=== PATIENT | male | born 1965 | race Caucasian/White ===

== ENCOUNTER 2019-03-28 18:09 | Outpatient (CLI) | payer OTHER, SELFPAY ==
--- NOTE | ~2019-03-28 | XR_ITS ---
EXAMINATION: XR chest 2V DATE: 03/28/2019 18:26 INDICATION: Shortness of breath and wheezing TECHNIQUE: PA and lateral views of the chest are obtained. COMPARISON: None available FINDINGS: The lungs are free of acute opacities. There is no pleural effusion or pneumothorax. The ca rdiomediastinal silhouette is normal. There is moderate thoracic spondylosis. IMPRESSION: 1. No acute cardiopulmonary abnormality. Reviewed, dictated and finalized at location A. [employer]
== END 2019-03-28 18:10 | disposition home or self-care (01) ==
PROVIDERS: PCP Internal Medicine; Visit Provider Internal Medicine
DX: R06.00 Dyspnea, unspecified (principal)
CPT/HCPCS: 71046

== ENCOUNTER 2019-04-27 09:03 | Outpatient (RCR) | payer OTHER, SELFPAY ==
[2019-04-27 09:30] VITALS: BMI 59.1
== END 2019-07-16 08:06 | disposition home or self-care (01) ==
LOC: ANHWOC 09:03
PROVIDERS: PCP Internal Medicine; Visit Provider Internal Medicine
DX: L03.115 Cellulitis of right lower limb (principal); L03.116 Cellulitis of left lower limb
CPT/HCPCS: 99213; G0463

== ENCOUNTER 2020-09-08 07:12 | Emergency (ER) | payer OTHER, SELFPAY ==
[2020-09-08] VITALS (34 sets, daily range): BP systolic 103–161; BP diastolic 64–99; PULSE 66–109; RESP 12–33; TEMP 36.6; O2SAT 93–99
--- NOTE | ~2020-09-08 | XR_ITS ---
EXAMINATION: XR chest 2V 09/08/2020 08:02 INDICATION: Chest tightness PROCEDURE: 2 view chest COMPARISON: No prior studies for comparison. FINDINGS: The lungs are clear. The cardiomediastinal silhouette is within normal limits. There are no pleural effusions. There is no pneumothorax suspected. There is diffuse idiopathic skeletal hyp erostosis (DISH) of the thoracic spine. IMPRESSION: 1: NO ACUTE CARDIOPULMONARY DISEASE. Reviewed, dictated and finalized at location A.
--- NOTE | 2020-09-08 07:13 | ECG_ITS ---
Measurements Intervals [place] Rate: 104 P: 72 AL: 176 QRS: -30 QRSD: 81 T: 75 QT: 313 QTc: 413 Interpretive Statements SINUS TACHYCARDIA ANTEROSEPTAL INFARCT, AGE INDETERMINATE BASELINE ARTIFACT- I, III, AVR, AVL, V1 ABNORMAL ECG Electronically Signed On 09-08-2020 10:47:46 CDT by Abe Banks D.O.
--- NOTE | 2020-09-08 07:27 | ED.CHESTPAIN ---
HPI - Chest Pain General Chief Complaint: Chest Pain Stated Complaint: chest pain Time Seen by Provider: 09/08/20 07:12 Source: patient Mode of arrival: ambulatory Limitations: no limitations History of Present Illness HPI narrative: 54-year-old man with a history of hypertension and dyslipidemia 54-year-old man with a history of obesity, dyslipidemia and hypertension comes in today complaining of chest tightness that started last night about 11:00 p.m.. Patient states that she feels short of breath, and mildly nauseated. Patient states he has been having pain in the middle of his back and he feels like the pain radiates from there. States the pain gets better if he moves his back to a more or less upright position. he has been seeing his chiropractor for this. He denies any cough or cold symptoms, fever, chills, sore throat, vomiting, diarrhea, dysuria, change in appetite, or recent sick exposures. He has had both a COVID and an influenza vaccine. MD complaint: chest discomfort Onset (ago): hour(s) (8) Timing of current episode: constant Prior episodes: No Onset: during rest Pain location: right chest and posterior Pain radiation: other ( right arm) Severity: moderate Quality: tightness Relieving factors: sitting upright Exacerbating factors: movement ( or position) Associated symptoms: nausea and dyspnea Treatment prior to arrival: none Risk Factors Coronary artery disease risk factors: hyperlipidemia and hypertension Pulmonary embolism risk factors: morbid obesity Related Data Home Medications Medication Instructions Recorded Confirmed escitalopram oxalate 20 mg PO DAILY 04/27/19 09/08/20 losartan-hydrochlorothiazide 1 tablet PO DAILY 04/27/19 09/08/20 pravastatin 10 mg PO DAILY 04/27/19 09/08/20 Allergies Allergy/AdvReac Type Severity Reaction Status Date / Time No Known Allergies Allergy Verified 04/27/19 14:08 Review of Systems Review of Systems: All systems reviewed & are unremarkable except as noted in HPI and below Constitutional: Constitutional: Denies chills, Denies fever(s) and Denies weakness Eyes: Eyes: Denies change in vision and Denies photophobia ENT: Denies nasal congestion and Denies sore throat Cardiovascular: Cardiovascular: Reports as per HPI, Denies rapid heart rate and Denies slow heart rate Respiratory: Respiratory: Reports as per HPI, Denies cough, Reports dyspnea and Denies wheezing Gastrointestinal: Gastrointestinal: Denies abdominal pain, Denies diarrhea, Reports nausea and Denies vomiting Genitourinary: Genitourinary: Denies dysuria and Denies urinary frequency Musculoskeletal: Musculoskeletal: Reports back pain, Denies arthralgias and Denies joint swelling Integumentary/Breasts: Skin/Breast: Denies pruritus, Denies erythema and Denies rash Neurologic: Denies vertigo, Denies dizziness and Denies syncope Endocrine: Endocrine: Denies polydipsia and Denies polyuria Hematologic/Lymphatic: Hematologic/Lymphatic: Denies easy bleeding and Reports easy bruising Allergic/Immunologic: Allergic/Immunologic: Denies lip swelling and Denies throat swelling PMFSH Past Medical History Medical History (Updated 09/08/20 @ 12:06 by Carlos Diaz MD) Dyslipidemia Hypertension Lymphedema of both lower extremities Morbid obesity Surgical History Surgical History History of carpal tunnel surgery Family History Family History (Updated 10/25/16 @ 13:55 by DOCTOR UNKNOWN) Mother Acute myocardial infarction Father Cerebrovascular accident Malignant neoplasm of prostate Social History Social History Smoking status: Former smoker Tobacco type: e-cigarettes/vaping Alcohol intake: never Substance use: never Living arrangements: with family Gender identity (if verbalized by the patient): Male Exam Const: General: alert Nutritional
[2020-09-08] MEDS: ASPIRIN 81 MG CHEWABLE TABLET 324 MG PO (07:31)
[2020-09-08] MEDS: MAG HYDROX/ALUMINUM HYD/SIMETH 30 ML, PHENobarb/HYOSCY/ATROPINE/SCOP 32.4 MG, LIDOCAINE... PO (07:31)
[2020-09-08 07:45] LABS: Basophils Absolute Auto 0.04 K/mm3 (0.00-0.10); Basophils Percent Auto 0.6 % (0.0-1.0); Eosinophils Absolute Auto 0.13 K/mm3 (0.02-0.50); Eosinophils Percent Auto 1.9 % (1.0-6.0); Hematocrit 48.2 % (40.0-54.0); Hemoglobin 14.9 g/dL (14.0-18.0); Immature Granulocyte Absolute 0.03 K/mm3 (0.00-0.00); Immature Granulocyte Percent A 0.4 % (0.0-0.0); Lymphocytes Absolute Auto 1.57 K/mm3 (1.10-4.50); Mean Corpuscular HGB Conc 30.9 g/dL (32.0-36.0); Mean Corpuscular Hemoglobin 28.7 pg (27.0-31.0); Mean Corpuscular Volume 92.7 fL (78.0-102.0); Mean Platelet Volume 12.1 fl (8.7-11.0); Monocytes Absolute Auto 0.86 K/mm3 (0.10-0.90); Monocytes Percent Auto 12.6 % (2.0-11.0); Neutrophils Absolute Auto 4.2 K/mm3 (1.7-7.2); Neutrophils Percent Auto 61.5 % (50.0-70.0); Platelet Count Result 203 K/mm3 (150-420); Red Cell Distribution Width 14.9 % (11.6-14.4); White Blood Count 6.8 K/mm3 (4.8-10.8)
[2020-09-08 08:06] LABS: Alanine Aminotransferase 19 U/L (16-63); Albumin Level 3.2 g/dL (3.4-5.0); Alkaline Phosphatase 83 U/L (46-116); Anion Gap 6 mmol/L (8-16); Aspartate Amino Transferase 45 U/L (15-37); Bilirubin,Total 0.4 mg/dL (0.00-1.00); Blood Urea Nitrogen 12 mg/dL (7-18); Calcium 8.8 mg/dL (8.5-10.1); Carbon Dioxide 31 mmol/L (21-32); Chloride 102 mmol/L (98-108); Estimated CRCL calculation 114 ml/min; Estimated Glomerular Filt Rate > 60; Glucose 111 mg/dL (70-99); Lipase 74 U/L (73-393); NT Pro B Type Natriuretic Pept 100 pg/mL (0-125); Osmolality Calculated 288 mOsm/kg (285-295); Potassium 3.9 mmol/L (3.5-5.1); Sodium 139 mmol/L (136-145); Total Protein 7.2 g/dL (6.4-8.2)
--- NOTE | 2020-09-08 08:11 | PC.NURSE ---
pt placed on 2liter oxygen via nc
[2020-09-08 08:13] LABS: D Dimer 0.42 mg/L (0.19-0.50)
--- NOTE | 2020-09-08 08:16 | PC.NURSE ---
call placed to [facility] for transfer.
[2020-09-08] MEDS: NITROGLYCERIN SL 0.4 MG TABLET SUBLINGUAL (08:20)
--- NOTE | 2020-09-08 08:25 | PC.NURSE ---
2ND SL NITROGLYCERIN ADMINISTERED. PT RATES PAIN 5/10 PRIOR TO ADMINISTRATION.
[2020-09-08] MEDS: ENOXAPARIN 100 MG/ML SYRINGE SUB-Q (08:30)
--- NOTE | 2020-09-08 08:30 | PC.NURSE ---
PT RATES PAIN 5/10. 3RD SL NITRO 0.4 MG ADMINISTERED.
[2020-09-08] MEDS: METOPROLOL TARTRATE 25 MG TABLET PO (08:40)
[2020-09-08 08:43] LABS: Partial Thromboplastin Time 27.1 SEC (23.90-30.70); Prothrombin Time 10.6 Seconds (9.50-12.10)
[2020-09-08] MEDS: NITROGLYCERIN OINTMENT 1 INCH DOSE TRANSDERM (08:50)
[2020-09-08] MEDS: ACETAMINOPHEN 500 MG TABLET 1000 MG PO (08:50)
--- NOTE | 2020-09-08 09:49 | PC.NURSE ---
DUE TO NO BEDS AT [facility]. [facility] CONTACTED PER PTS REQUEST.
--- NOTE | 2020-09-08 10:46 | PC.NURSE ---
PT SITTING UP ON STRETCHER, DENIES PAIN, FAMILY AT BEDSIDE. DR STOREY ATTEMPTING TO CONTACT [facility].
--- NOTE | 2020-09-08 10:48 | PC.NURSE ---
NO BEDS AVAILABLE AT [facility], DR STOREY CONTACTING [facility] [place].
--- NOTE | 2020-09-08 10:51 | PC.NURSE ---
DR STOREY SPEAKING WITH DR CABALLERO
--- NOTE | 2020-09-08 10:59 | PC.NURSE ---
[facility] CONTACTED, TRANSFER CENTER STATES THEY HAVE NO BEDS AT [place] OR [facility], BUT COULD POSSIBLY HAVE SOMETHING AT [facility]. DR STOREY SPEAKING WITH TRANSFER LINE. PT CONTINUES TO REST COMFORTABLY ON STRETCHER, NO PAIN AT THIS TIME, FAMILY AT BEDSIDE
--- NOTE | 2020-09-08 11:13 | PC.NURSE ---
DR STOREY SPEAKING WITH DR CROOK, CARDIOLOGY WITH [facility]. [facility] HAS NO BEDS AND PT WILL BE PUT ON WEIGHT LIST ONCE ACCEPTED.
--- NOTE | 2020-09-08 11:14 | PC.NURSE ---
[facility] CONTACTED AND DOES NOT HAVE A BED AVAILABLE FOR PT.
--- NOTE | 2020-09-08 11:19 | PC.NURSE ---
[facility] TRANSFER LINE CONTACTED TO CHECK BED STATUS FOR TRANSFER.
--- NOTE | 2020-09-08 12:02 | PC.NURSE ---
pt to be transfered to [facility] in [place] to the er.
[2020-09-08 12:17] LABS: Glucose Point of Care 91 mg/dl (65-105)
[2020-09-08] MEDS: DEXTROSE 5%/0.9% SOD CHL 1,000 ML 100 ML IV CONT (12:31)
--- NOTE | 2020-09-08 12:31 | PC.NURSE ---
CHART FAXED TO RECEIVING FACILITY
[2020-09-08 12:33] LABS: Add Urine Microscopic? YES; Appearance Urine Clear (Clear); Bilirubin Urine Negative (Negative); Blood Urine Negative (Negative); Color Urine Yellow (Yellow); Glucose Urine UA Negative (Negative); Ketones Urine Negative (Negative); Leukocyte Esterase Ur Negative LEU/UL (Negative); Nitrate Urine Negative (Negative); Protein Urine Trace (Negative); Specific Grav Ur >= 1.030 (1.010-1.020); Urobilinogen Urine 0.2 mg/dL (0.2-1.0); pH Urine 5.5 (5.0-8.0)
--- NOTE | 2020-09-08 12:46 | PC.NURSE ---
PT TRANSFERRED TO [facility] IN [facility] VIA [facility]. [facility] CONTACTED PRIOR TO [facility] AND THEY DO NOT HAVE [facility] AVAILABLE FOR TRANSFER. PT TRANSFERRED WITH IV FLUIDS INFUSING
[2020-09-08 12:48] LABS: Bacteria Urine 2+ /hpf; Mucus Urine Few /lpf; RBC Urine 0-2 /hpf (0-2); Squamous Epithelial Cell Urine Few /hpf (Few); WBC Urine 0-3 /hpf (0-3)
== END 2020-09-08 12:46 | disposition short-term general hospital (02) ==
PROVIDERS: Emergency Provider Emergency Medicine; PCP Internal Medicine
DX: I21.4 Non-ST elevation (NSTEMI) myocardial infarction (principal); R06.02 Shortness of breath
CPT/HCPCS: 36415; 71046; 80053; 81001; 82948; 83690; 83880; 84484; 85025; 85380; 85610; 85730; 93005; 96372; 99285; A9270; J1650; J7042

== ENCOUNTER 2021-12-03 09:54 | Outpatient (CLI) | payer OTHER, SELFPAY ==
--- NOTE | ~2021-12-03 | US_ITS ---
EXAMINATION: US venous doppler [facility] DATE: 12/03/2021 10:56 INDICATION: Left lower extremity edema TECHNIQUE: Arora scale images without and with compression and Doppler images of the left lower extrem ity veins were obtained. COMPARISON: None FINDINGS: The left common femoral vein, profunda femoral vein, femoral vein, popliteal vein, peroneal trunk, posterior tibial veins, and greater saphenous vein are patent. There appears to be a mildly e nlarged left inguinal lymph node. IMPRESSION: 1. Patent left lower extremity veins. No evidence of deep venous thrombosis. 2. Possible left inguinal lymphadenopathy. Clinically correlate. Reviewed, dictated and finalized at location B.
== END 2021-12-03 09:55 | disposition home or self-care (01) ==
LOC: CHSIMG 09:57
PROVIDERS: PCP Internal Medicine; Visit Provider Internal Medicine
DX: R60.0 Localized edema (principal)
CPT/HCPCS: 93971

== ENCOUNTER 2021-12-28 08:37 | Outpatient (CLI) | payer OTHER, SELFPAY ==
--- NOTE | ~2021-12-28 | CT_ITS ---
EXAMINATION: CT diagnostic chest wo con DATE: 12/28/2021 09:14 INDICATION: Shortness of breath TECHNIQUE: Computed tomography (CT) of the chest was performed without intravenous contrast. The dose -length product (DLP) was 1100.03 mGy-cm. Automated exposure control and iterative reconstruction mariangel hnique were employed. COMPARISON: None FINDINGS: There are multiple small nodules scattered throughout the lungs which measure up to 4 mm. T he lungs are free of focal airspace opacities. No pleural effusion or pneumothorax. There is mild emp hysema. No pathologically enlarged thoracic lymph nodes are identified. The heart size is normal. The re appear to be changes of coronary artery stenting. Mild gynecomastia is noted. Calcified pulmonary nodules and calcified left hilar lymph nodes are consistent with old granulomatous disease. There is moderate thoracic spondylosis. IMPRESSION: 1. Mild emphysema. 2. Scattered pulmonary nodules throughout the lungs measuring up to 4 mm, likely old granulomatous di sease. Reviewed, dictated and finalized at location F. [employer] IMPRESSION: 1. Mild emphysema. 2. Scattered pulmonary nodules throughout the lungs measuring up to 4 mm, likel y old granulomatous disease.
== END 2021-12-28 08:38 | disposition home or self-care (01) ==
LOC: CHSIMG 08:38
PROVIDERS: PCP Internal Medicine; Visit Provider Internal Medicine
DX: R06.00 Dyspnea, unspecified (principal)
CPT/HCPCS: 71250

== ENCOUNTER 2022-05-17 15:17 | Outpatient (CLI) | payer OTHER, SELFPAY ==
--- NOTE | ~2022-05-17 | CT_ITS ---
EXAMINATION:CT lung screening DATE: 05/17/2022 15:35 INDICATION: Personal history of nicotine dependence. Smoker who quit 10 years ago with 28 pack year h istory. TECHNIQUE: Computed tomography (CT) of the chest was performed without intravenous contrast. Automate d exposure control and iterative reconstruction technique were employed. The dose-length product (DLP ) was 738.95 mGy-cm. COMPARISON: Chest CT 12/28/2021 FINDINGS: There is mild emphysema. There is mild atelectasis bilaterally. Calcified bilateral lung no dules and calcified left hilar lymph nodes are consistent with old granulomatous disease. There is a 4 mm nodule at left major fissure. There are 4 mm and 3 mm nodules in the right upper lobe. There is a 3 mm nodule in lingula. No pleural effusion. The heart size is normal. There is likely a stent in l eft anterior descending coronary artery. No pericardial effusion. There is mild chronic anterior wedg ing of multiple thoracic vertebral bodies. There is moderate thoracic spondylosis. Thoracic dextrosco liosis is noted. IMPRESSION: 1. Lung-RADS category 2: Benign appearance or behavior. Continue annual screening with noncontrast lo w-dose chest CT in 12 months. Reviewed, dictated and finalized at location A. IMPRESSION: 1. Lung-RADS category 2: Benign appearance or behavior. Continue annual screeni ng with noncontrast low-dose chest CT in 12 months.
== END 2022-05-17 15:18 | disposition home or self-care (01) ==
LOC: CHSIMG 15:18
PROVIDERS: PCP Internal Medicine; Visit Provider Internal Medicine
DX: Z12.2 Encounter for screening for malignant neoplasm of respiratory organs (principal); Z87.891 Personal history of nicotine dependence
CPT/HCPCS: 71271

== ENCOUNTER 2022-09-21 17:01 | Outpatient (CLI) | payer OTHER, SELFPAY ==
[2022-09-21 17:21] LABS: Basophils Absolute Auto 0.05 K/mm3 (0.00-0.10); Basophils Percent Auto 0.5 % (0.0-1.0); Eosinophils Absolute Auto 0.13 K/mm3 (0.02-0.50); Eosinophils Percent Auto 1.4 % (1.0-6.0); Hematocrit 45.4 % (40.0-54.0); Hemoglobin 14.1 g/dL (14.0-18.0); Immature Granulocyte Absolute 0.06 K/mm3 (0.00-0.00); Immature Granulocyte Percent A 0.6 % (0.0-0.0); Lymphocytes Absolute Auto 1.57 K/mm3 (1.10-4.50); Lymphocytes Percent Auto 16.8 % (18.0-42.0); Mean Corpuscular HGB Conc 31.1 g/dL (32.0-36.0); Mean Corpuscular Volume 93.4 fL (78.0-102.0); Mean Platelet Volume 11.5 fl (8.7-11.0); Monocytes Absolute Auto 0.91 K/mm3 (0.10-0.90); Monocytes Percent Auto 9.7 % (2.0-11.0); Neutrophils Absolute Auto 6.7 K/mm3 (1.7-7.2); Platelet Count Result 209 K/mm3 (150-420); Red Blood Count 4.86 M/mm3 (4.70-6.10); Red Cell Distribution Width 15.4 % (11.6-14.4); White Blood Count 9.4 K/mm3 (4.8-10.8)
[2022-09-21 17:22] LABS: Appearance Urine Clear (Clear); Bilirubin Urine Negative (Negative); Blood Urine Trace-Intact (Negative); Color Urine Yellow (Yellow); Glucose Urine UA Negative (Negative); Ketones Urine Negative (Negative); Leukocyte Esterase Ur Negative (Negative); Nitrate Urine Negative (Negative); Protein Urine Negative (Negative); Specific Grav Ur 1.025 (1.010-1.020)
[2022-09-21 17:54] LABS: Add Urine Microscopic? YES; Amorphous Sediment Urine Moderate; Bacteria Urine 1+ /hpf; RBC Urine 0-2 /hpf (0-2); Squamous Epithelial Cell Urine Few /hpf (Few)
[2022-09-21 17:55] LABS: Mucus Urine Moderate /lpf
[2022-09-21 18:14] LABS: Alanine Aminotransferase 25 U/L (16-63); Albumin Level 3.4 g/dL (3.4-5.0); Alkaline Phosphatase 100 U/L (46-116); Anion Gap 7 mmol/L (8-16); Aspartate Amino Transferase 47 U/L (15-37); Bilirubin,Total 0.5 mg/dL (0.00-1.00); Blood Urea Nitrogen 14 mg/dL (7-18); Carbon Dioxide 30 mmol/L (21-32); Chloride 105 mmol/L (98-108); Cholesterol 139 mg/dL (0-200); Estimated Glomerular Filt Rate > 60; Free T3 2.57 pg/mL (2.18-3.98); Free T4 Free Thyroxine 1.04 ng/dL (0.76-1.46); Glucose 95 mg/dL (70-99); HDL Direct 40 mg/dL (40-60); LDL Cholesterol Calculated 87 mg/dL (<130); NT Pro B Type Natriuretic Pept 49 pg/mL (0-125); Osmolality Calculated 294 mOsm/kg (285-295); Potassium 4.4 mmol/L (3.5-5.1); Prostate Specific Antigen 0.6 ng/mL (< OR = 4.0); Sodium 142 mmol/L (136-145); Thyroid Stimulating Hormone 3.85 uIU/mL (0.36-3.74); Total Protein 6.7 g/dL (6.4-8.2); Triglycerides 62 mg/dL (0-150)
[2022-09-22 10:38] LABS: Hemoglobin A1C 5.9 % (<5.7)
== END 2022-09-21 17:02 | disposition home or self-care (01) ==
LOC: CHSLAB 17:05
PROVIDERS: PCP Internal Medicine; Visit Provider Internal Medicine
DX: L03.115 Cellulitis of right lower limb (principal); R53.82 Chronic fatigue, unspecified; I83.893 Varicose veins of bilateral lower extremities with other complications; I89.0 Lymphedema, not elsewhere classified; I10 Essential (primary) hypertension; Z12.5 Encounter for screening for malignant neoplasm of prostate; I89.9 Noninfective disorder of lymphatic vessels and lymph nodes, unspecified; I28.9 Disease of pulmonary vessels, unspecified
CPT/HCPCS: 36415; 80053; 80061; 81001; 83036; 83880; 84153; 84439; 84443; 84481; 85025; 85380; G0103

== ENCOUNTER 2023-03-26 07:58 | Outpatient (CLI) | payer OTHER, SELFPAY ==
[2023-03-26 08:22] LABS: Appearance Urine Clear (Clear); Bilirubin Urine 1+ (Negative); Blood Urine Negative (Negative); Color Urine Yellow (Yellow); Glucose Urine UA Negative (Negative); Ketones Urine Negative (Negative); Leukocyte Esterase Ur Negative LEU/UL (Negative); Nitrate Urine Negative (Negative); Protein Urine Trace (Negative); Specific Grav Ur >= 1.030 (1.010-1.020)
[2023-03-26 08:31] LABS: Add Urine Microscopic? YES; Bacteria Urine 1+ /hpf; Mucus Urine Few /lpf; RBC Urine None seen /hpf (0-2); Squamous Epithelial Cell Urine Few /hpf (Few); WBC Urine None seen /hpf (0-3)
[2023-03-26 08:43] LABS: Basophils Absolute Auto 0.03 K/mm3 (0.00-0.10); Basophils Percent Auto 0.4 % (0.0-1.0); Eosinophils Absolute Auto 0.08 K/mm3 (0.02-0.50); Hematocrit 51.3 % (40.0-54.0); Hemoglobin 15.3 g/dL (14.0-18.0); Immature Granulocyte Absolute 0.04 K/mm3 (0.00-0.00); Immature Granulocyte Percent A 0.5 % (0.0-0.0); Lymphocytes Absolute Auto 0.93 K/mm3 (1.10-4.50); Lymphocytes Percent Auto 11.9 % (18.0-42.0); Mean Corpuscular HGB Conc 29.8 g/dL (32.0-36.0); Mean Corpuscular Hemoglobin 26.6 pg (27.0-31.0); Mean Corpuscular Volume 89.1 fL (78.0-102.0); Mean Platelet Volume 11.4 fl (8.7-11.0); Monocytes Absolute Auto 0.96 K/mm3 (0.10-0.90); Monocytes Percent Auto 12.3 % (2.0-11.0); Neutrophils Absolute Auto 5.8 K/mm3 (1.7-7.2); Neutrophils Percent Auto 73.9 % (50.0-70.0); Platelet Count Result 202 K/mm3 (150-420); Red Blood Count 5.76 M/mm3 (4.70-6.10); Red Cell Distribution Width 17.2 % (11.6-14.4); White Blood Count 7.8 K/mm3 (4.8-10.8)
[2023-03-26 08:48] LABS: Hemoglobin A1C 5.9 % (<5.7)
[2023-03-26 09:03] LABS: Alanine Aminotransferase 18 U/L (16-63); Albumin Level 3.3 g/dL (3.4-5.0); Alkaline Phosphatase 112 U/L (46-116); Anion Gap 7 mmol/L (8-16); Aspartate Amino Transferase 38 U/L (15-37); Bilirubin,Total 0.8 mg/dL (0.00-1.00); Blood Urea Nitrogen 12 mg/dL (7-18); Calcium 8.6 mg/dL (8.5-10.1); Carbon Dioxide 32 mmol/L (21-32); Chloride 102 mmol/L (98-108); Cholesterol 129 mg/dL (0-200); Creatine Kinase 125 U/L (39-308); Estimated Glomerular Filt Rate 59; Free T3 1.97 pg/mL (2.18-3.98); Free T4 Free Thyroxine 0.89 ng/dL (0.76-1.46); Glucose 106 mg/dL (70-99); HDL Direct 50 mg/dL (40-60); LDL Cholesterol Calculated 73 mg/dL (<130); Osmolality Calculated 291 mOsm/kg (285-295); Potassium 4.1 mmol/L (3.5-5.1); Sodium 141 mmol/L (136-145); Thyroid Stimulating Hormone 4.72 uIU/mL (0.36-3.74); Total Protein 7.4 g/dL (6.4-8.2); Triglycerides 29 mg/dL (0-150)
== END 2023-03-26 07:59 | disposition home or self-care (01) ==
PROVIDERS: PCP Internal Medicine; Visit Provider Internal Medicine
DX: N39.0 Urinary tract infection, site not specified (principal); E78.00 Pure hypercholesterolemia, unspecified; I10 Essential (primary) hypertension; R73.01 Impaired fasting glucose; R53.82 Chronic fatigue, unspecified
CPT/HCPCS: 36415; 80053; 80061; 81001; 82550; 83036; 84439; 84443; 84481; 85025

== ENCOUNTER 2023-05-02 07:48 | Outpatient (CLI) | payer OTHER, SELFPAY ==
--- NOTE | ~2023-05-02 | US_ITS ---
EXAMINATION: US thyroid DATE: 05/02/2023 08:28 INDICATION: Hypothyroidism TECHNIQUE: Multiple ultrasound images of the thyroid were obtained. COMPARISON: CT chest 12/28/2021. FINDINGS: Exam somewhat limited by body habitus. The right thyroid lobe measures 2.7 x 1.4 x 1.3 cm. The left thyroid lobe measures 3.3 x 1.2 x 1.3 cm. The isthmus measures 6 mm. There is normal echotexture and echogenicity throughout the thyroid gland. No discrete nodules identified. Normal vascular flow is pr esent. IMPRESSION: Unremarkable thyroid ultrasound findings. Reviewed, dictated and finalized at location K.
--- NOTE | 2023-05-02 08:09 | ECHO_ITS ---
Patient Info Name: Rony Franco Age: 57 years : 1965 Gender: Male Ht: 69 in Wt: 420 lbs BSA: 3.17 m2 HR: 80 bpm BP: 145 / 90 mmHg Heart Rhythm: Sinus Rhythm Technical Quality: Poor Exam Date: 05/02/2023 9:32 AM Exam Location: Echo Lab Patient Status: Outpatient Admit Date: 05/02/2023 Staff Ordering Physician: Michelle Yap MD Video News Editor: Vijay Dubon RDCS Attending Provider: Michelle Yap MD Referring Physician: Fracisco WALLACE; Exam Type: CA echo dop color flow w con Study Info Indications - copd/hypoxia/chf Complete two-dimensional, color flow and Doppler transthoracic echocardiogram is performed with contrast to opacify the left ventricle and to improve the deliniation of the left ventricle endocardial borders. Contrast/Agitated Saline Contrast/Ag. Saline: Definity Amount: 3.00 ml Reason for Poor Study: poor echocardiographic windows Summary 1. Technically suboptimal study due to poor sonographic images. 2. Definity contrast administered improved wall motion interpretation. 3. Left ventricular chamber dimension is normal. 4. Left ventricular systolic function is normal, estimated at 60-65%. 5. The left ventricular diastolic function is grade I diastolic dysfunction. 6. E/e' 13 is mildly elevated. 7. There is mild mitral valve regurgitation. 8. There is trace tricuspid valve regurgitation. 9. No pulmonary hypertension, estimated pulmonary arterial systolic pressure is 14 mmHg. Left Ventricle E/e' 13 is mildly elevated. Definity contrast administered improved wall motion interpretation. Technically suboptimal study due to poor sonographic images. Left ventricular chamber dimension is normal. Left ventricular systolic function is normal, estimated at 60-65%. The left ventricular diastolic function is grade I diastolic dysfunction. Right Ventricle Right ventricular chamber dimension is normal. Right ventricular systolic function is normal. Left Atria Left atrial chamber dimension is normal. Right Atria Right atrial chamber dimension is normal. Aortic Valve The aortic valve is trileaflet. There is no aortic valve stenosis. There is no aortic valve regurgitation. Pulmonic Valve There is no pulmonic regurgitation. Mitral Valve There is no mitral valve stenosis. There is mild mitral valve regurgitation. Tricuspid Valve There is trace tricuspid valve regurgitation. No pulmonary hypertension, estimated pulmonary arterial systolic pressure is 14 mmHg. Pericardium/Pleural There is no pericardial effusion. Inferior Vena Cava Normal inferior vena cava with >50% collapse upon inspiration consistent with normal right atrial pressure, 5 mmHg. Aorta The aortic root size at the sinus of Valsalva is normal. Left Ventricular Outflow Tract Name Value Normal LVOT 2D LVOT Diameter 2.04 cm LVOT Doppler LVOT Peak Velocity 126.78 cm/s LVOT Peak Gradient 6 mmHg LVOT Mean Gradient 3 mmHg LVOT VTI 37.59 cm LVOT VTI/AV VTI Ratio 1.30 LVOT Stroke Volume 122.25 ml
--- NOTE | 2023-05-02 08:55 | PCRCNOTE ---
PT. REFUSED SIX MINUTE WALK STUDY.
== END 2023-05-02 07:49 | disposition home or self-care (01) ==
PROVIDERS: PCP Internal Medicine; Visit Provider Internal Medicine
DX: E03.9 Hypothyroidism, unspecified (principal); J44.9 Chronic obstructive pulmonary disease, unspecified; R09.02 Hypoxemia; I50.9 Heart failure, unspecified; R94.2 Abnormal results of pulmonary function studies
CPT/HCPCS: 76536; 94060; 94726; 94729; 95012; C8929

== ENCOUNTER 2025-02-02 09:24 | Outpatient (CLI) | payer OTHER, SELFPAY ==
--- OUTSIDE RECORDS SUMMARY | 2025-02-02 09:29 | XMS_ITS | Encounter Summary ---
Author Organization [facility] Address [address] [place] [address] Care Team Providers Care Chef Under Name Role Phone Michelle Yap MD Primary Care Provider [phone] Justino Herrmann MD Unavailable Encounter Details Date Type Department Care Team (Late st Contact Info) Description 09/19/2015 Abstract 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
--- OUTSIDE RECORDS SUMMARY | 2025-02-02 09:29 | XMS_ITS | Clinical Summary ---
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 Name Role Phone Michelle Yap MD Primary Care Provider Allergies No known active allergies Medications losartan-hydroCHL OROthiazide (HYZAAR) 100-12.5 mg per tablet Take 1 tablet by mouth daily Active escitalopram (LEXAPRO) 20 mg tablet Take 1 tablet (20 mg total) by mouth daily Active gabapentin (NEURONTIN) 300 mg capsule Take 1 capsule (300 mg total) by mouth 3 (three) times a day Active metoprolol XL (TOPROL-XL) 25 mg extended release tablet Take 1 tablet (25 mg total) by mouth daily 08/05/19 24 Active ipratropium-albut Dieog (DUO-NEB) 0.5-2.5 mg/3 mL nebulizer solutionIndicatio ns:Chronic Obstructive Pulmonary Disease with Bronchospasms Take 3 mL by nebulization every 12 (twelve) hours as needed for shortness of breath 08/05/19 24 Active albuterol HFA (PROVENTIL HFA,VENTOLIN HFA,PROAIR HFA) 90 mcg/actuation inhaler Inhale 2 puffs every 6 (six) hours as needed for wheezing Active tamsulosin (Flomax) 0.4 mg extended release capsule Take 1 capsule (0.4 mg total) by mouth daily 08/29/19 24 Active atorvastatin (LIPITOR) 40 mg tablet Take 1 tablet (40 mg total) by mouth daily 09/28/19 24 Active furosemide (LASIX) 40 mg tablet Take 2 tablets (80 mg total) by mouth daily 10/18/19 24 Active potassium chloride ER 20 mEq CR tablet Take 1 tablet (20 mEq total) by mouth daily 10/18/19 24 Active aspirin 81 mg enteric coated tablet Take 1 tablet (81 mg total) by mouth daily Active rOPINIRole (REQUIP) 1 mg tablet Take 1 tablet (1 mg total) by mouth 2 (two) times a day 1 tab in the morning and 2 tabs at night Active albuterol HFA (PROVENTIL HFA,VENTOLIN HFA,PROAIR HFA) 90 mcg/actuation inhaler Inhale 2 puffs every 6 (six) hours as needed for wheezing or shortness of breath 1 each 06/13/19 25 Active levalbuterol (XOPENEX) 0.63 mg/3 mL nebulizer solution Take 3 mL (0.63 mg total) by nebulization every 4 (four) hours as needed for wheezing or shortness of breath 540 mL 07/21/19 25 Active fluticasone-umecl idin-vilanter (Trelegy Ellipta) 200-62.5-25 mcg inhalerIndication s:Centrilobular emphysema Inhale 1 puff daily Rinse and spit after use 30 each 09/11/19 026 Active fluticasone propionate (FLONASE) 50 mcg/actuation nasal spray SPRAY 2 SPRAYS (100 MCG) IN EACH NOSTRIL BY INTRANASAL ROUTE ONCE DAILY AT BEDTIME 01/05/20 25 Active Active Problems Problem Noted Date Diagnosed Date COPD exacerbation 06/12/2024 Assessment & Plan (06/12/2024 3:57 PM CDT): Increase in cough, discolored sputum, and congestion Start steroids and antibiotics We have discussed signs and symptoms that would require urgent evaluation Nicotine dependence, cigarettes, in remission Assessment & Plan (08/22/2024 12:56 PM CDT): He was due for annual low-dose cancer screening in July but does not feel he is able to lie flat order to complete this. The order is still valid but I will order a chest x-ray in the interval Assessment & Plan (06/12/2024 4:03 PM CDT): He is due for annual low-dose cancer screening in July, I have ordered this today Valvular heart disease 09/28/2023 Overview (09/28/2023): Mild TR on echo 28 July 2023. Normal LVEF of 69%. Also noticed severe pulmonary hypertension. Assessment & Plan (09/28/2023 3:24 PM CDT): We discussed echo findings from 2 months ago. No change in medical regimen here. Pulmonary hypertension 09/28/2023 Overview (04/26/2024): Severe pulmonary hypertension by right heart catheterization 01 August 2023. Severe pulmonary hypertension by echo 28 July 2023. He has seen Dr. Leal and he was placed on oxygen in mid 2023. Apparently not a candidate for vasodilators. Assessment & Plan (04/26/2024 1:10 PM CDT): Chronically short of breath because of severe pulmonary hypertension. Now on 2 L nasal cannula since mid 2023. Assessment & Plan (09/28/2023 3:23 PM CDT): He has 2 L O2 nasal cannula all day. Follows up with Dr. Leal so he will ask Dr. Leal whether he can go back to work without oxygen. Apparently no more lower extremity edema or edema of the private parts while off any diuretic. Elevated LDL cholesterol level 09/28/2023 Overview (04/26/2024): LDL of 95 mg/dL on 20 September 2023. On Lipitor 40 mg p.o. q.d.. Was at one time on Lipitor 80 mg daily. Another lipid panel would be useful. Assessment & Plan (04/26/2024 1:08 PM CDT): We discussed LDL cholesterol goal of less than 70 mg/dL. He was not at goal about 7 months ago. He thinks he had a lipid panel done with primary care doctor recently. I advised him to ask the primary care doctor whether LDL was less than 70 mg/dL. No change in maximum dose of Lipitor at this time. Assessment & Plan (09/28/2023 3:22 PM CDT): We discussed LDL cholesterol goal of less than 70 mg/dL. He was not at goal last week, so I will increase the Lipitor to 40 mg p.o. q.d.. Another fasting lipid/liver panel in 6-8 weeks. Coronary artery disease invo lving kasaan coronary artery of kasaan heart without angina pectoris 09/28/2023 Overview (09/28/2023): Status post Trixie stent to mid LAD on 09 September 2020 ([facility]) for NSTEMI. Assessment & Plan (04/26/2024 1:09 PM CDT): We discussed cardiac intervention from almost 4 years ago. He is very sedentary because of his morbid obesity. I advised him to walk regularly. Other than shortness of breath, he does not have classic exertional tightness like 4 years ago. He is agreeable to getting a pharmacologic nuclear stress test before next office visit. Assessment & Plan (09/28/2023 3:21 PM CDT): Patient has not any chest pain with the course he short of breath with activities. On 2 L O2 nasal cannula pretty much all day. He follows up with Dr. Leal and he will ask Dr. 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 No change in medical regimen from my standpoint. Obesity hypoventilation syndrome 09/21/2023 Assessment & Plan (01/28/2025 11:19 AM [facility]): He has gained weight since our last office visit. He should work on weight loss and would benefit from an exercise program. He has thus far been unable to tolerate AVAPS I ordered a new sleep study today Assessment & Plan (09/21/2023 3:37 PM CDT): He has lost over 40 lb since hospitalization He will discuss diuretics with his systems development consultant at next week's appointment Continue diet and exercise Continue AVAPS with all sleep Chronic respiratory failure with hypoxia, on home O2 therapy 09/21/2023 Assessment & Plan (01/28/2025 11:14 AM [facility]): Continue supplemental oxygen for saturations 90% Recent 6 minute walk test revealed desaturations even at 6 liters of supplemental oxygen. He has been using 2 liters at rest and up to 4-5 liters with activity Settings: AVAPS rate 12 EPAP min 7 max 15 PS min 5 max 15 and vT 450-550 with a 2 liter bleed in. He has not been using this. Still has his unit from rehab and despite not knowing the settings I have encouraged him to use this bring it to his next office visit so we can investigate Assessment & Plan (08/22/2024 12:49 PM CDT): Continue supplemental oxygen for saturations 90% Recent 6 minute walk test revealed desaturations even at 6 liters of supplemental oxygen. He has been using 2 liters at rest and up to 4-5 liters with activity When he is out he has concerns about running out of battery so he does not increased to his appropriate liter flow. We have had an extensive conversation about the risks of hypoxia I have encouraged him to resume use of his AVAPS and we have discussed the potential clinical benefits of use. Settings should be: AVAPS rate 12 EPAP min 7 max 15 PS min 5 max 15 and vT 450- 550 with a 2 liter bleed in. I am unable to discern benefit as he has not been wearing this. In the interval he should attempt to use with all sleep and naps Assessment & Plan (06/12/2024 3:55 PM CDT): Continue supplemental oxygen for saturations 90% Recent 6 minute walk test revealed desaturations even at 6 L of supplemental oxygen. He has restarted his diuretics as he noted weight gain and has had improvement in dyspnea He has been using 2 L at rest and up to 6 L with activity and maintaining saturations of 90% or greater I will need to compare his AVAPS from [facility] and his AVAPS from the rehab to discern the difference in settings and why he is unable to tolerate a machine from [employer]. He will take pictures of his machines we will collaborate with the [employer]. In the interval he should wear this with all sleep and naps Assessment & Plan (10/21/2023 1:20 PM CDT): Continue supplemental oxygen for saturations 90% Recent 6 minute walk test revealed desaturations even at 6 L of supplemental oxygen. He has restarted his diuretics as he noted weight gain and has had improvement in dyspnea May plan to re walk in the near future Continue AVAPS with all sleep He is due for set up by [facility] on Tuesday10/24/2023 Plans to monitor download in 6-8 weeks Assessment & Plan (09/21/2023 3:44 PM CDT): Continue supplemental oxygen for saturations 90% Will evaluate formally as he does report some episodic hypoxia at home Continue AVAPS with all sleep We will contact [facility] rehab to investigate his machine, settings, and trouble shooting for his alarms We have discussed the risks of hypoxia and hypercapnia COPD (chronic obstructive pulmonary disease) Assessment & Plan (01/28/2025 11:16 AM [facility]): At this time he will continue Dulera 200 twice daily and Spiriva Respimat once daily at the same time. He had the best clinical benefit from Trelegy Ellipta however this is not covered by his insurance He has tried and failed Dulera, Spiriva, and Anoro. He does not qualify for the patient assistance program. Continue albuterol 2 puffs every 4-6 hours as needed only, we have discussed indications for use Alpha-1 buccal swab collected in the office today. He has not had frequent exacerbations or significant peripheral eosinophilia His walk testing in December of 2024 Demetry he needed room air at rest and 4 L of supplemental oxygen with activity We have discussed signs and symptoms that would require earlier evaluation or change to his plan of care Assessment & Plan (08/22/2024 12:55 PM CDT): At this time he will continue Dulera 200 twice daily and Spiriva Respimat once daily at the same time. He had the best clinical benefit from Trelegy Ellipta however this is not covered by his insurance He has tried and failed Dulera, Spiriva, and Anoro. He does not qualify for the patient assistance program. Continue albuterol 2 puffs every 4-6 hours as needed only, we have discussed indications for use Alpha-1 buccal swab collected in the office today. He has not had frequent exacerbations or significant peripheral eosinophilia He would benefit from weight loss and pulmonary rehab I will repeat a walk test to properly re-evaluate his supplemental oxygen needs at rest and with activity We have discussed signs and symptoms that would require earlier evaluation or change to his plan of care Assessment & Plan (06/12/2024 3:57 PM CDT): At this time he will continue Dulera 200 twice daily and Spiriva Respimat once daily at the same time He had the best clinical benefit from Trelegy Ellipta however this is not covered by his insurance He has tried and failed Dulera, Spiriva, and Anoro. I have given him the patient assistance program paperwork to complete He can continue albuterol 2 puffs every 4-6 hours as needed only, we have discussed indications for use Need alpha-1 buccal swab He has not had frequent exacerbations We have discussed signs and symptoms that would require earlier evaluation or change to his plan of care Assessment & Plan (10/21/2023 1:22 PM CDT): Continue Trelegy Ellipta 100 once daily He can continue albuterol as needed only, we have discussed indications for use If he continues to do well at his next reassessment consider deescalation to LABA/LAMA therapy Need alpha-1 buccal swab Assessment & Plan (09/21/2023 3:38 PM CDT): He is currently on Trelegy Ellipta 200 once daily He has minimal peripheral eosinophilia historically and I am unsure that he needs high-dose steroids I will decrease him to Trelegy Ellipta 101 puff daily He can continue albuterol as needed only, we have discussed indications for use If he continues to do well at his next reassessment consider deescalation to LABA/LAMA therapy CORONA (obstructive sleep apnea) 08/03/2023 MAXX (acute kidney injury) 08/02/2023 Metabolic alkalosis 08/02/2023 Encephalopathy 08/02/2023 Coronary artery disease invo lving kasaan coronary artery of kasaan heart without angina pectoris 08/02/2023 Pulmonary hypertension 07/29/2023 Assessment & Plan (01/28/2025 11:13 AM [facility]): RHC was notable for combined pre and post capillary pulmonary hypertension, also increased cardiac output due to his severe morbid obesity This is likely secondary to both group 2 and group 3 disease There is no indication for pulmonary vasodilators I have stressed the importance of oxygen compliance in the risks of hypoxia We have again discussed the use of AVAPS in the modification of CO2 retention He continues to assert that there is no machine that feels as comfortable as the one he used while in rehab. Assessment & Plan (06/12/2024 3:58 PM CDT): RHC was notable for combined pre and post capillary pulmonary hypertension, also increased cardiac output due to his severe morbid obesity is contributing This is likely secondary to both group 2 and group 3 disease There is no indication for pulmonary vasodilators I have stressed oxygen and AVAPS compliance Assessment & Plan (10/21/2023 1:23 PM CDT): RHC was notable for combined pre and post capillary pulmonary hypertension, also increased cardiac output due to his severe morbid obesity is contributing There is no indication for pulmonary vasodilators Assessment & Plan (09/21/2023 3:36 PM CDT): RHC was notable for combined pre and post capillary pulmonary hypertension, also increased cardiac output due to his severe morbid obesity is contributing There is no indication for pulmonary vasodilators Anasarca 07/28/2023 Assessment & Plan (07/28/2023 6:56 AM CDT): Signs and symptoms of fluid overload. Differentials include acute decompensated heart failure, decompensated cirrhosis, hypothyroidism, malignant ascites, increased capillary permeability secondary to T2DM. BNP <36 which makes acute decompensated heart failure less likely, although TTE (12/2021) demonstrated EF 50% with grade I diastolic dysfunction so it may still be a consideration. Pt's AST/ALT was increased at 137/75 and 2.0 urobilinogen in urine, and although patient denies any significant alcohol history with his BMI metabolic-associated fatty liver disease resulting in decompensated cirrhosis should be considered (although patient does not have an elevated alk phos, anemia, or thrombocytopenia). Pt had been on lasix for leg swelling. - TSH, A1c, follow CBC/CMP - TTE - RUQ US - Continue diuresis with lasix 40 mg IV bid - strict I&Os - cardiology consult Respiratory acidosis 07/28/2023 Constipation 07/28/2023 Altered mental status 07/28/2023 Bilateral cellulitis of lower leg 07/21/2023 Cellulitis and abscess of leg, except foot 07/20 Hypertension 07/21/2023 Assessment & Plan (07/28/2023 5:11 AM CDT): Per [facility] chart review (sees Dr. Villareal, cardiology), pt self-stopped taking carvedilol and switched back to his losartan which he was on previously. Also takes hydrochlorothiazide for HTN. BP controlled this admission - continue losartan 100 mg po od, HCTZ 12.5 mg po od Chest pain 09/08/2020 History of non-ST elevation myocardial infarctio n (NSTEMI) 09/08/2020 Assessment & Plan (07/28/2023 5:05 AM CDT): Hx NSTEMI in 2020. [facility] 09/09/2020, at that time EF 65%, double-vessel CAD w/ high-grade stenosis in mid LAD and totally occluded mid RCA. Stent placed in mid LAD. TTE (12/2021) demonstrated EF 50% with grade I diastolic dysfunction. - Pt on aspirin, plavix, atorvastatin, metoprolol prior to admission; continue same Ulcer of left lower extremity with fat layer exp osed 04/03/2019 Lymphedema of both lower extremities 10/26/2017 Assessment & Plan (10/26/2017 9:40 AM CDT): He has lymphedema of both legs that requires daily faithful compression hose (or CircAid) use. He should apply the compression hose/wraps first thing in the mornings. We'd recommend repeat enrollment in a lymphedema program close to home. We'll repeat a venous Doppler to determine if there is superificial venous reflux contributing to the stasis changes. History of cellulitis 10/26/2017 Obesity 10/26/2017 Assessment & Plan (10/26/2017 9:39 AM CDT): We discussed the importance of weight loss related to his lower extremity edema, recurrent cellulitis and stasis changes. He's a risk for future complications with his legs. That risk could be greatly reduced with weight loss. We've given him the phone number to the bariatric clinic at [place] and recommended consultation. Cellulitis of left lower extremity 01/28/2016 Chronic venous stasis dermatitis of both lower e xtremities 01/28/2016 Assessment & Plan (07/28/2023 5:16 AM CDT): Longstanding bilateral lower limb edema with chronic venous stasis dermatitis with venous ulcers. On Gabapentin 300 mg po tid and had recently been started on lasix 40 mg po bid. - continue gabapentin 300 mg po tid - wound care consult - treatment of anasarca as above Lymphedema 01/28/2016 Morbid obesity due to excess calories 01/28/2016 Assessment & Plan (07/28/2023 5:11 AM CDT): Advised lifestyle modifications Encounters Date Type Department Care Team Description 01/23/2025 1:00 PM [facility] Office Visit [facility] Pul[facility] at [address] [place] [address] Britney Tong NP Obesity hypoventilation syndrome (HCC) (Primary Dx); Chronic respiratory failure with hypoxia, on home O2 therapy (HCC); Pulmonary hypertension (HCC); Centrilobular emphysema 01/11/2025 9:28 AM [facility] - 01/11/2025 11:59 PM [facility] Hospital Encounter [facility] [address] [place] [address] Centrilobular emphysema Discharge Disposition: Discharge to home or self care 01/11/2025 8:44 AM [facility] - 01/11/2025 11:59 PM [facility] Hospital Encounter [facility] [address] [place] [address] Centrilobular emphysema Discharge Disposition: Discharge to home or self care 11/16/2024 Telephone [facility] Pul[facility] at [address] [place] [address] Michaela Becerril CMA from Last 3 Months Surgical History Surgery Date Site/Laterality Comments OTHER SURGICAL HISTORY Right cataract surgery, left carpal tunnel COLONOSCOPY 10/03/2017 Medical History Medical History Date Comments Hypertension Hypertension Hx Other Medical Chronic left le g edema Hyperlipidemia Obesity hypoventilation syndrome (HCC) COPD exacerbation (HCC) 06/12/2024 Family History Medical History Relation Name Comments Cancer Father Hypertension Father Stroke Father Cancer Maternal Grandmother Heart disease Maternal Grandmother Heart disease Mother Hypertension Mother Diabetes Paternal Grandmother Stroke Paternal Grandmother Relation Name Status Comments Father Maternal Grandmother Mother Paternal Grandmother Social History Tobacco Use Types Packs/Day Years Used Date Smoking Tobacco: Former Cigarettes 2 35.4 0 09/21/1983 - 2019 Smokeless Tobacco: Never Tobacco Cessation:Counseling Given: Not Answered Alcohol Use Standard Drinks/Week Comments No 0 (1 standard drink = 0.6 oz pur e alcohol) [facility] Utilities Answer Date Recorded In the past 12 months has [employer], gas, oil, or water [employer] threatened to shut off services in your home? No 07/29/2023 Social Connection and Isolation Panel Answer Date Recorded In a typical week, how many times do you talk on the phone with family, friends, or neighbors? More than three times a week 07/29/2023 How often do you get togethe r with friends or relatives? Twice a week 07/29/2023 How often do you attend chur or bahai services? Never 07/29/2023 Do you belong to any clubs o r organizations such as voodoo groups, unions, fraternal or athletic groups, or school groups? No 07/29/2023 How often do you attend meet ings of the clubs or organizations you belong to? Never 07/29/2023 Are you , , di vorced, , never , or living with a partner? 07/29/2023 Overall Financial Resource Strain (CARDIA) Answe r Date Recorded How hard is it for you to pa y for the very basics like food, housing, medical care, and heating? Not very hard 07/29/2023 Hunger Vital Sign Answer Date Recorded Within the past 12 months, y ou worried that your food would run out before you got the money to buy more. Never true 07/29/19 24 Within the past 12 months, t he food you bought just didn't last and you didn't have money to get more. Never true 07/29/2023 PRAPARE - Transportation Answer Date Re corded In the past 12 months, has l ack of transportation kept you from medical appointments or from getting medications? No 07/15 In the past 12 months, has l ack of transportation kept you from meetings, work, or from getting things needed for daily living? No 07/29/2023 Housing Stability Vital Sign Answer Dung e Recorded In the last 12 months, was t here a time when you were not able to pay the mortgage or rent on time? No 07/29/2023 In the past 12 months, how m any times have you moved where you were living? 0 07/29/2023 At any time in the past 12 m [facility], were you homeless or living in a fdc (including now)? No 07/29/2023 AUDIT-C Answer Date Recorded Frequency of Alcohol Consumption Not on file 01/23/2025 Q2: How many drinks containi ng alcohol do you have on a typical day when you are drinking? Patient does not drink Frequency of Binge Drinking Not on file 01/14 Personal Safety Answer Date Recorded Have you ever been in or are you currently in a harmful physical or emotional relationship or is someone making you feel afraid or unsafe? Denies 07/27/2023 Sex and Gender Information Value Date Recorded Sex Assigned at Not on file Legal Sex Male 2:39 AM [facility] Gender Identity Not on file Sexual Orientation Not on file Last Filed Vital Signs Vital Sign Reading Time Taken Comments Blood Pressure 150/83 01/23/2025 12:57 PM [facility] Pulse 121 01/23/2025 12:57 PM [facility] Temperature 36.6 C (97.9 F) 01/23/2025 12:57 PM [facility] Respiratory Rate 20 01/23/2025 12:5 7 PM [facility] Oxygen Saturation 91% 01/23/2025 12: 57 PM [facility] with 2 liters of oxygen Inhaled Oxygen Concentration - - Weight 203.2 kg (448 lb) 01/23/2025 12: 57 PM [facility] Height 175.3 cm (5' 9) 01/23/2025 12:5 7 PM [facility] Body Mass Index 66.16 01/23/2025 12:57 PM [facility] Plan of Treatment Health Maintenance Due Date Last Done Comments Depression Screening 1966 Hepatitis C Screening 1966 Prostate Cancer Screening-PSA 1966 Hepatitis B Screening 1984 Regular Well Visit/Exam 18-64 1984 Lung Cancer Screening 2016 Pneumococcal vaccine <65 (2 of 2 - PPSV23, PCV20, or PCV21) 06/29/2018 05/04/2018 Influenza Vaccine (#1) 2024 9, 11/03/2017, 11/09/2016, Additional history exists DTaP/Tdap/Td Vaccine (2 - Td or Tdap) 09/29/2026 09/29/2016 Colon Cancer Screening-Colonoscopy 10/04/2027 10/03/2017 Colon Cancer Screening-CT Colonography Discontinued 10/03/2017 Colon Cancer Screening-DNA Stool Discontinued 10/04/19 Colon Cancer Screening-FIT Discontinued 10/03/2017 Colon Cancer Screening-Sigmoidoscopy Discontinued 10/03/2017 Zoster Vaccine Completed 12/01/2018, 08/23/2018 Procedures Procedure Name Priority Date/Time Associated Diagnosis Comments PULMONARY FUNCTION TEST (PFT) Routine 01/11/2025 9:43 AM [facility] Centrilobular emphysema XR CHEST PA LATERAL 2 VIEWS Schedule Routine, Read Routine (OP Routine) 01/11/2025 9:41 AM [facility] Centrilobular emphysema COLONOSCOPY 10/03/2017 9:35 AM CDT from Last 3 Months or Most Recently Relevant to Health Maintenance Results * Pulmonary Function Test -[facility]; Pulse Ox with 6 Minute Walk (01/11/2025 9:43 AM [employer]) Anatomical Region Laterality Modality PFT Narrative 01/14/2025 3:42 PM [employer] Patient walked a total of 420 ft. Patient required 4 L of nasal cannula. Lowest saturation was 86% while walking on room air. Britney Tong NP PFT ORDERABLES Final Resul t * X-ray chest 2 views (01/11/2025 9:41 AM [employer]) Anatomical Region Laterality Modality Body, Chest N/A Computed Radiogr aphy 01/11/2025 9:53 AM [employer] Impressions 01/11/2025 9:53 AM [employer] Small right pleural effusion with subjacent atelectasis/scarring. Curvilinear opacity within the posterior right lower lobe may reflect scarring or persistent loculated component of the effusion. Electronically signed by: Epifanio Rockwell M.D. Narrative 01/11/2025 9:53 AM [employer] EXAMINATION: XR CHEST PA LATERAL 2 VIEWS. TECHNIQUE: Two radiographic views of the chest. HISTORY: copd COMPARISON: 08/02/2023, 07/28/2023 FINDINGS: Support devices: None. Lungs: Small right pleural effusion with subjacent atelectasis. Curvilinear opacity of the posterior right lower lobe best seen on the lateral radiograph may reflect scarring or persistent loculated component. No pneumothorax. Heart/Mediastinum: Unchanged cardiomediastinal contours. Borderline cardiomegaly. Bones/Soft Tissues: No acute displaced fracture. Procedure Note Epifanio Rockwell MD - 01/11/2025 EXAMINATION: XR CHEST PA LATERAL 2 VIEWS. TECHNIQUE: Two radiographic views of the chest. HISTORY: copd COMPARISON: 08/02/2023, 07/28/2023 FINDINGS: Support devices: None. Lungs: Small right pleural effusion with subjacent atelectasis. Curvilinear opacity of the posterior right lower lobe best seen on the lateral radiograph may reflect scarring or persistent loculated component. No pneumothorax. Heart/Mediastinum: Unchanged cardiomediastinal contours. Borderline cardiomegaly. Bones/Soft Tissues: No acute displaced fracture. IMPRESSION: Small right pleural effusion with subjacent atelectasis/scarring. Curvilinear opacity within the posterior right lower lobe may reflect scarring or persistent loculated component of the effusion. Electronically signed by: Epifanio Rockwell M.D. Britney M. Alycia HYPERBARIC TECHNOLOGIST IMG XR PROCEDURES Final Res ult * COLONOSCOPY (10/03/2017 9:35 AM CDT) Anatomical Region Laterality Modality Other Narrative Procedure Note Breanne Madrid MD - 10/03/2017 9:35 AM CDT [facility] Patient Name: Rony Franco Procedure Date: 10/03/2017 9:35 AM Date of : 1965 Admit Type: Outpatient Age: 52 Gender: Male Attending MD: Breanne Madrid MD Room: [facility] END[facility]COPY ROOM 1 Note Status: Finalized Patient Profile: 52 WM, screening, no family h/o colon cancer, Procedure: Colonoscopy Indications: Screening for colorectal malignant neoplasm Referring MD: Michelle Yap MD Providers: Breanne Madrid MD Impression: - The cecum is normal. - Two diminutive 2 to 4 mm polyps in the distalsigmoid colon, removed with a jumbo cold forceps. Resectedand retrieved. - Internal hemorrhoids. Recommendation: - Await pathology results. - Repeat colonoscopy in 5-10 years forsurveillance. Medicines: Monitored Anesthesia Care Complications: No immediate complications. Estimated Blood Loss: Estimated blood loss: none. Procedure: Pre-Anesthesia Assessment: - Prior to the procedure, a History and Physical was performed, and patient medications and allergieswere reviewed. The patient's tolerance of previous anesthesia was also reviewed. The risks and benefitsof the procedure and the sedation options and riskswere discussed with the patient. All questions were answered, and informed consent was obtained. Prior Anticoagulants: The patient has taken no previous anticoagulant or antiplatelet agents. ASA Grade Assessment: II - A patient with mild systemicdisease. After reviewing the risks and benefits, the patientwas deemed in satisfactory condition to undergo the procedure. The benefits, risks and alternatives of theprocedure and sedation were discussed and informed consent was obtained. All questions were answered. Please referto the signed informed consent document in the medical record. The scope was passed under direct vision.The Pediatric Colonoscope PCF-H190L [id number] was introduced through the anus and advanced to the the cecum, identified by appendiceal orifice andileocecal valve. The colonoscopy was performed without difficulty. The patient tolerated the procedurewell. The quality of the bowel preparation wasexcellent. Findings: The perianal and digital rectal examinations were normal. The cecum appeared normal. Overall the colon was normal. Two semi-sessile diminutive polyps were found in the distal sigmoid colon. The polyps were 2 to 4 mm in size. These polyps were removedwith a jumbo cold forceps. Resection and retrieval were complete. Internal hemorrhoids were found during retroflexion. The hemorrhoids were small. Electronically signed by Breanne Madrid M.D. Breanne Madrid MD 10/03/2017 10:20:06 AM Number of Addenda: 0 Note Initiated On: 10/03/2017 9:35 AM Procedure Code(s): --- Professional --- 93738, Colonoscopy, flexible; with biopsy, single or multiple Diagnosis Code(s): --- Professional --- Z12.11, Encounter for screening for malignant neoplasm of colon K64.8, Other hemorrhoids D12.5, Benign neoplasm of sigmoid colon CPT copyright 2017 [employer]. All rights reserved. The codes documented in this report are preliminary and upon advanced developer reviewmay be revised to meet current compliance requirements. 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 Use antibiotics, IV Fluids, and medical treatment unless specifically selected below: No intubation * Full Code Date Activated Date Inactivated Comments 07/29/2023 5:35 PM 07/29/2023 5:45 PM * LIMITED - No CPR Date Activated Date Inactivated Comments 07/28/2023 5:19 AM 07/29/2023 5:35 PM Question Answer Comments Provide aggressive medical m anagement before a full cardiopulmonary arrest occurs. 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
--- OUTSIDE RECORDS SUMMARY | 2025-02-02 09:30 | XMS_ITS | Clinical Summary ---
Author Organization [facility] Address [address] [place] [address] Phone Care Team Providers Care Organ Assembler Name Role Phone Michelle Yap MD Primary Care Provider [phone] Social History Tobacco Use Types Packs/Day Years Used Date Smoking Tobacco: Never Assessed Sex and Gender Information Value Date Recorded Sex Assigned at Not on file Legal Sex Male 11:39 PM CDT Gender Identity Not on file Sexual Orientation Not on file Plan of Treatment Health Maintenance Due Date Last Done Comments Hepatitis C Virus (HCV) Screening 1965 TdaP Immunization 1965 Hepatitis B Immunization (1 of 3 - 19+ 3-dose series) 1985 Cologuard 09/26/2011 Colonoscopy 09/26/2011 Colorectal Cancer Screening 09/26/2011 Immunochemical Fecal Occult Blood 09/26/2011 Pneumococcal Immunization (5 0+ years) (1 of 1 - PCV) 2016 Zoster Immunization (1 of 2) 2016 PSA Discussion 2021 Influenza Immunization (#1) 2024 SARS-COV-2 Immunization ( - 2024- season) 2024 Respiratory Syncytial Virus (RSV) Immunization (Adult) (1 - 1-dose 75+ series) 2041 Human Papillomavirus (HPV) Immunization (No Doses Required) Completed Meningococcal Immunization (ACWY) Aged Out No longer eligible based on patient's age to complete this topic Rotavirus Immunization Aged Out No lo nger eligible based on patient's age to complete this topic Care Teams Organ Assembler Relationship Specialty Start Date End Date Michelle Yap MD [address] [place] [address] PCP - General Internal Medicine 07/01/16
--- OUTSIDE RECORDS SUMMARY | 2025-02-02 09:30 | XMS_ITS | Clinical Summary ---
Author Organization [facility] Address [address] [place] [address] Care Team Providers Care Electrical And Electronic Assembler Name Role Phone Michelle Yap MD Primary Care Provider [phone] Source Comments [facility],non-owned Affiliates and Associated Physician Practices is amultiple site organization consisting of ambulatory clinics and hospital sitesin [place], [place], [place] and [place]. This disclosure is being madepursuant to the Care Everywhere program and may not contain all information available regarding this patient. Last updated 17.[facility] Allergies No known active allergies Medications * Be aware that medications may not be up to date on this document. Alwaysverify current medications with the patient. escitalopram (LEXAPRO) 20 MG tablet Take 20 mg by mouth once daily Active losartan-hydroC HLOROthiazide (HYZAAR) 100-12.5 MG tablet Take 1 tablet by mouth once daily Active metoprolol succinate XL 24hr (TOPROL XL) 25 MG tablet Take 1 (one) tablet by mouth 2 times daily 60 tablet 1 06/04/2021 Active tadalafil (Cialis) 5 MG tablet Take 5 mg by mouth once daily 10/28/2021 Active clindamycin (Cleocin) 300 MG capsule TAKE 1 CAPSULE BY MOUTH EVERY 8 HOURS 11/05/2021 Active cefUROXime (Ceftin) 500 MG tablet Take 500 mg by mouth 2 times daily 11/05/2021 Active furosemide (Lasix) 40 MG tablet Take 1 (one) tablet by mouth once daily 30 tablet 6 11/18/2021 Active clopidogrel (plaVIX) 75 MG tablet TAKE 1 TABLET BY MOUTH EVERY DAY 90 tablet 1 07/06/2022 Active atorvastatin (Lipitor) 80 MG tablet TAKE 1 TABLET BY MOUTH EVERY DAY 90 tablet 2 08/30/2022 Active Active Problems Problem Noted Date Diagnosed Date NSTEMI (non-ST elevated myocardial infarction) 0 09/08/2020 Chest pain 09/08/2020 Social History Tobacco Use Types Packs/Day Years Used Date Smoking Tobacco: Never Assessed Sex and Gender Information Value Date Recorded Sex Assigned at Not on file Legal Sex Male 1:55 PM CDT Gender Identity Not on file Sexual Orientation Not on file Last Filed Vital Signs Vital Sign Reading Time Taken Comments Blood Pressure 142/70 11/18/2021 2:45 PM CDT Pulse 87 11/18/2021 2:45 PM CDT Temperature 36.6 C (97.8 F) 09/10/2020 12:20 PM CDT Respiratory Rate 24 09/10/2020 12:2 0 PM CDT Oxygen Saturation 92% 11/18/2021 2:45 PM CDT Inhaled Oxygen Concentration - - Weight 198.3 kg (437 lb 3.2 oz) 11/18/2021 2:45 PM CDT Height 175.3 cm (5' 9) 09/08/2020 2:55 PM CDT Body Mass Index 64.56 09/08/2020 2:55 PM CDT Plan of Treatment Health Maintenance Due Date Last Done Comments COLOGUARD (AGES 45-75) - COL ON CA SCREENING 1965 COLON MONITORING 1966 COLONOSCOPY - COLON CA SCREENING 1966 CT COLONOGRAPHY - COLON CA SCREENING 1966 Colorectal Cancer Screening 1966 FIT - COLON CA SCREENING 1966 FLEX SIG - COLON CA SCREENING 1966 HIV SCREENING 1981 HEPATITIS C SCREENING 09/20/1984 DTAP/TDAP/TD VACCINES (1 - Tdap) 1985 HEPATITIS B VACCINE (1 of 3 - 19+ 3-dose series) 1985 PNEUMOCOCCAL VACCINE 50+ (1 of 1 - PCV) 2016 ZOSTER VACCINE (1 of 2) 2016 DEPRESSION SCREENING 02/15/2024 COVID-19 VACCINE (1 - 2024-2 6 season) 2024 INFLUENZA VACCINE (#1) 2024 HIB VACCINE Aged Out No longer eligi ble based on patient's age to complete this topic HPV VACCINE Aged Out No longer eligi ble based on patient's age to complete this topic MENINGOCOCCAL (Group B) VACC INE SHARED DECISION-MAKING Aged Out No longer eligibl e based on patient's age to complete this topic MENINGOCOCCAL GROUPS A/C/Y/W VACCINE Aged Out No longer eligible b ased on patient's age to complete this topic Insurance [facility] Advance Directives * Full Code (Latest Code Status on File) Date Activated Date Inactivated Comments 09/08/2020 10:29 PM 09/10/2020 5:26 PM Care Teams Electrical And Electronic Assembler Relationship Specialty Start Date End Date Michelle Yap MD [address] [place] [address] PCP - General Internal Medicine 09/08/20
--- OUTSIDE RECORDS SUMMARY | 2025-02-02 09:30 | XMS_ITS | Data Portability ---
[facility] [address] [place] [address] Assessment Encounter Date Assessment Date Assessment LastModified by Organization Details LastModified Time 05/20/2023 05/20/2023 ECG done on 2023 shows sinus rhythm with a rate of 97 beats minute, left axis deviation, RSR prime pattern. History of CAD status post stent [address] [facility] and abnormal artery without recurrence of chest pain or pressure Stable pattern of dyspnea on exertion for the last year does have known history of COPD Obesity Essential hypertension c ontrolled Hyperlipidemia on atorvastatin Diastolic dysfunction grade 1 Mitral regurgitation, mild on echocardiogram done 05/03/2013 History of lymphedema, severe with mild to moderate pitting edema as well in both lower extremities Lower extremity ulceration posteriorly in the right lower extremity, his insurance will not cover a wound clinic. He is on antibiotics per his primary care physician History of COPD Obstructive sleep apnea but unable to tolerate CPAP Plan I asked him to elevate his legs whenever possible. I asked him to follow a low-fat low-cholesterol low-sodium diet. I would like to put him on some Lasix as he does have some pitting edema however I do not have based on labs. When I put him on the Bumex and has not had nausea with Lasix in the past and Lasix today and will likely benefit by the spironolactone but I will need to see his labs first. She has not I will discontinue his hydrochlorothiazide but for now we will continue the atorvastatin 80 mg daily, Plavix 75 mg daily, losartan/hydrochlorot hiazide 100/12.5 mg daily, and will increase his carvedilol from 12.5 mg p.o. twice daily to 25 mg p.o. twice daily as his heart rates are suboptimal for patient with known history of coronary artery disease. He will likely need a lymphedema pump at some point once his ulcer is healed and his lower extremity. He tells me his insurance will not cover a wound clinic which she would benefit from. He tells me he had laboratories done recently over with his primary care physician in the last month which were fasting labs which I will try to get a copy of. Evidently [facility] which I will try to get for my review, I will try to get a copy of his catheterization and PCI report from [facility] done in 2019. I would like him to return in 4 weeks time for reevaluation. Will make further decisions regarding his diuretic therapy once I get his laboratories from his primary care physician. CARDIAC TESTING ECHOCARDIOGRAM 05/04/2023: Left ventricular chamber dimension is normal. Left ventricular systolic function normal, estimated at 60-65%. The left ventricular diastolic function is grade 1 diastolic function. E/e is mildly elevated. There is mild mitral valve regurgitation. There is trace tricuspid valve regurgitation. NO pulmonary hypertension, estimated pulmonary atrial systolic pressure. Not available 05/20/2023 11:46:51 Plan of Treatment Reminders Order Date Submit Date Provider Last Modified By Organization Details Last Modified Time Details Appointments None recorded. Lab None recorded. Referral None recorded. Procedures None recorded. Surgeries None recorded. Imaging None recorded. Medication Orders carvedilol 25 mg tablet 2023 024 [id number], [address] [place], [address], 11:45:33 Patient TargetsNo targets recorded. Patient InstructionsNo instructions recorded. Reason for Referral None Reported. Results Created Date Observation Date Name Description Value Unit Range Abnormal Flag Note LastModifiedBy Organization Detail LastModifiedTime 05/04/1905/02/2023 US, echoc ardio gram, trans thora cic, compl ete, w/ color flow No observ ation record ed. [facility] [address] [place], [address], 05/09/2023 14:52:17 05/20/19 24 elect dhara diogr am No observ ation record ed. [facility] In-Office Order Internal Use Only DO Not Attach Compendium DO Not Attach Compendium, Do Not Delete/merge, [id number] 05/20/2023 11:51:08 07/20/19 24 07/20/2023 aftab can cardi olite stres s test (PROC ) No observ ation record ed. [facility]) [address] [place], [address], 07/20/2023 13:57:33 07/20/19 24 07/20/2023 exerc ise stres s test No observ ation record ed. BARCODE Not Available 2023 19:49:37 07/20/19 24 07/20/2023 right heart chin teriz ation inclu ding measu remen t(s) of oxyge n satur ation and cardi ac outpu t (PROC ) No observ ation record ed. BARCODE Not Available 2023 19:49:37 Result Notes None recorded. Problems Name Problem SNOMED Code Status Onset Date Resolution Date Notes Provider Name and Address Organization Details Recorded Time Edema of lower extremity 244110498 Active 2023 Hung Villareal MD Attn: Yoel arana,[address] [facility], [place], [address], [facility] 4 11:39:31 Essential hypertensio n 34552819 Active 2023 Hung Villareal MD Attn: Yoel arana,[address] [facility], [place], [address], [facility] - [facility] 4 11:39:32 Hyperlipide ravi 30025928 Active 2023 Hung Villareal MD Attn: Yoel arana,[address] [facility], [place], [address], [facility] - [facility] 4 11:39:34 Lymphedema of bilateral lower limbs 2492821179473 9101 Active 2023 Hung Villareal MD Attn: Yoel arana,[address] [facility], [place], [place], [address] [place] [address], [place] - [facility] 4 11:39:38 Stented coronary artery 649527077 Active 2023 Hung Villareal MD Attn: Yoel arana,[address] [facility], [place], [place], [address] [place] [address], [place] - [facility] 4 11:39:39 Atheroscler osis of coronary artery without angina pectoris 0875827950936 03 Active 2023 Hung Villareal MD Attn: Yole arana,[address] [facility], [place], [place], [address] [place] [address], [place] - [facility] 4 11:39:41 Dyspnea on exertion 75952377 Active 2023 Hung Villareal MD Attn: Yoel arana,[address] [facility], [place], [address] [place] [address], [place] - [facility] 4 11:39:42 Lymphedema of lower extremity 783689929 Active 2023 Hung Villareal MD Attn: Yoel arana,[address] [facility], [place], [place], [address] [place] [address], [place] - [facility] 4 11:39:43 Problem Notes None recorded. Medical Equipment None Reported. Allergies No known drug allergies Medications Name Sig Start Date Stop Date Status Note LastModified by Organization Details LastModified Time atorvastati n 80 mg tablet TAKE 1 TABLET BY MOUTH EVERY DAY active Not Available Not Available No t Available carvedilol 25 mg tablet Take 1 tablet twice a day by oral route. 2023 active Not Available Not Available Not Avai lable carvedilol 12.5 mg tablet TAKE 1 TABLET BY MOUTH TWICE A DAY WITH FOOD active Not Available Not Available No t Available ropinirole 1 mg tablet TAKE 1 TABLET BY ORAL ROUTE IN THE MORNING AND 2 AT BEDTIME active Not Available Not Available No t Available ipratropium 0.5 mg-albutero l 3 mg (2.5 mg base)/3 mL nebulizatio n soln INHALE 3 MILLILITE RS BY NEBULIZAT ION ROUTE 4 TIMES PER DAY active Not Available Not Available No t Available clindamycin HCl 300 mg capsule active Not Available Not Available Not Available moxifloxaci n 400 mg tablet TAKE 1 TABLET BY MOUTH EVERY DAY active Not Available Not Available No t Available clopidogrel 75 mg tablet TAKE 1 TABLET BY MOUTH EVERY DAY active Not Available Not Available No t Available ciprofloxac in 500 mg tablet TAKE 1 TABLET BY MOUTH EVERY 12 HOURS active Not Available Not Available No t Available sulfamethox azole 800 mg-trimetho prim 160 mg tablet TAKE 1 TABLET BY MOUTH EVERY 12 HOURS active Not Available Not Available No t Available gabapentin 300 mg capsule TAKE 1 CAPSULE (300 MG) BY MOUTH AT BED TIME active Not Available Not Available No t Available mupirocin 2 % topical ointment APPLY SPARINGLY TO AFFECTED AREA TWICE A DAY active Not Available Not Available No t Available albuterol sulfate HFA 90 mcg/actuati on aerosol inhaler INHALE 2 PUFFS BY MOUTH EVERY 4 TO 6 HOURS NEEDED active Not Available Not Available No t Available amoxicillin 875 mg-potassiu m clavulanate 125 mg tablet TAKE 1 TABLET BY MOUTH EVERY 12 HOURS active Not Available Not Available No t Available escitalopra m 20 mg tablet TAKE 1 TABLET BY MOUTH EVERY DAY active Not Available Not Available No t Available tadalafil 5 mg tablet TAKE 1 TABLET BY MOUTH EVERY DAY active Not Available Not Available No t Available losartan 100 mg-hydrochl orothiazide 12.5 mg tablet TAKE 1 TABLET BY MOUTH DAILY active Not Available Not Available No t Available metoprolol succinate 05/19 completed Not Available Not Available Not Available Lexapro active Not Available Not Avail able Not Available Trelegy Ellipta 200 mcg-62.5 mcg-25 mcg powder for inhalation INHALE 1 PUFF BY MOUTH ONCE DAILY AT THE SAME TIME EACH DAY active Not Available Not Available No t Available Vitals Date Recorded Body height Body mass index (BMI) Body weight Heart rate Respiratory rate Oxygen saturation Systolic And Diastolic Provider Name and Address Organization Details Last Updated DateTime 4 175.26 cm 65.9 kg/m2 234760. 63 g 80 /min 18 /min 98 % 120/74 mm[Hg] Hung Villareal MD Attn: Yoel g [facility], [place], [address], [facility] 10:46:45 Social History Question Answer Notes LastModified by Organizat ion Details LastModified Time Tobacco Smoking Status Current Every Day Smoker Hung Villareal MD Attn: Accounting,[address] , [place], [address], [facility] 05/20/2023 10:41:48 What Was The Date Of Your Most Recent Tobacco Screening? 05/20/2023 Information not available 05/20/2023 How Much Tobacco Do You Smoke? 0.5 PPD Information not available 05/20/2023 Sex: Male Functional Status None recorded. Mental Status None recorded. Family History Nothing Reported. Medical History No medical history recorded. Past Encounters Encounter ID Performer Location Encounter Start Date Encounter Closed Date Diagnosis/Indication Diagnosis SNOMED-CT Code Diagnosis ICD10 Code Diagnosis IMO Codes Diagnosis Note [id number] Hung Villareal MD [facility] [address] [facility] [address] [place] [address] 05/20/2023 10:19:20 05/23/2023 11:30:31 Lymphedema of lower extremity 258075766 I89.0 Dyspnea on exertion 6084 5006 R06.09 Atheroscle rosis of coronary artery without angina pectoris 0234674202 22150 I25.10 Stented co ronary artery 231884494 Z95.5 Lymphedema of bilateral lower limbs 2562366841 9046743 I89.0 Edema of l ower extremity 973162897 R60.0 Essential hypertension 98206425 I10 Hyperlipidemia 24326358 E78.5 Health Concerns Section Related Observation LastModified by Organization Detai ls LastModified Time None Recorded Concern Status LastModified by Organization Details LastModified Time None Recorded Advance Directives Directive None Recorded Payers Insurance Date Sequence Insurance Name Policy Number Policy Rendon Covered Member ID Rendon Member ID Guarantor Name 09/13/[address] [facility] [id number] Rony Franco [id number] Rony Berumenuetz Notes Date Note Type Note Provider Name and Address Organization Details Recorded Time 05/20/2023 text/html Mr. franco is a 57 year old male who was referred for cardiac evaluation and treatment by Dr. Yap in [place], [place]. He had a myocardial infarction back in 2019 and had a stent in an unknown artery which had a 95% stenosis at [facility] after he presented to [place]. He has not had recurrent chest pain since his myocardial infarction. He has a history of obesity, hyperlipidemia, hypertension, copd and lymphedema in his lower extremities and smokes down to 1/2 ppd down from 1 1/2 ppd and has smoked for the past 40 years. He remains on plavix and was taken off aspirin due to bruising with aspirin and plavix. He does have CORONA but is intolerant to cpap. He can get some shortness of breath with walking more than 50 feet and is unchanged in pattern for the past one year. He had an echocardiogram done at [facility] on 05/04/2023 by his primary care physician which showed Left ventricular chamber dimension is normal. Left ventricular systolic function normal, estimated at 60-65%. The left ventricular diastolic function is grade 1 diastolic function. E/e is mildly elevated. There is mild mitral valve regurgitation. There is trace tricuspid valve regurgitation. NO pulmonary hypertension, estimated pulmonary atrial systolic pressure. and also did PFTs. He evidently had a stress test about a year ago at [facility] which I do not have available to me. He is compliant with his medications. He denies any side effects from his medications. He denies any chest pain, shortness of breath, dizziness, syncope, orthopnea, paroxysmal nocturnal dyspnea, palpitations or lower extremity edema. Hung Villareal MD Attn: Accounting,[address] [facility], [place], [address], [facility] [place] 05/20/2023 11:46:54
[2025-02-02 09:42] LABS: Add Urine Microscopic? YES; Appearance Urine Clear (Clear); Glucose Urine UA Negative (Negative); Hematocrit 43.6 % (40.0-54.0); Hemoglobin 13.3 g/dL (14.0-18.0); Immature Granulocyte Percent A 0.5 % (0.0-0.0); Leukocyte Esterase Ur Negative LEU/UL (Negative); Lymphocytes Absolute Auto 1.00 K/mm3 (1.10-4.50); Mean Corpuscular HGB Conc 30.5 g/dL (32-36); Mean Corpuscular Hemoglobin 29.0 pg (27.0-31.0); Mean Corpuscular Volume 95.2 fL (78.0-102.0); Nitrate Urine Negative (Negative); Nucleated Red Blood Cells Absolute Auto 0.00 K/mm3 (0.00-0.00); Nucleated Red Blood Cells Perc 0.0 % (0-0.0); Platelet Count Result 220 K/mm3 (150-420); Red Blood Count 4.58 M/mm3 (4.70-6.10); Specific Grav Ur 1.020 (1.010-1.020); White Blood Count 8.6 K/mm3 (4.8-10.8)
[2025-02-02 10:09] LABS: Hemoglobin A1C 5.1 % (<5.7)
[2025-02-02 10:35] LABS: Alanine Aminotransferase 17 U/L (6-50); Albumin Level 4.1 g/dL (3.5-5.1); Alkaline Phosphatase 96 U/L (38-126); Anion Gap 9 mmol/L (4-12); Aspartate Amino Transferase 44 U/L (17-59); Bilirubin,Total 0.5 mg/dL (0.2-1.3); Blood Urea Nitrogen 11 mg/dL (9-20); Calcium 9.1 mg/dL (8.4-10.2); Carbon Dioxide 28 mmol/L (22-30); Chloride 104 mmol/L (98-107); Cholesterol 159 mg/dL (0-200); Creatine Kinase 129 U/L (55-170); Estimated Glomerular Filt Rate > 60; Glucose 104 mg/dL (65-110); HDL Direct 50 mg/dL; Osmolality Calculated 291 mOsm/kg (285-295); Potassium 4.1 mmol/L (3.4-5.0); Sodium 141 mmol/L (137-145); Total Protein 7.1 g/dL (6.3-8.2); Triglycerides 48 mg/dL (<150)
[2025-02-02 10:44] LABS: NT Pro B Type Natriuretic Pept 65 pg/mL (19.9-100)
[2025-02-02 10:52] LABS: Free T4 Free Thyroxine 1.06 ng/dL (0.78-2.19)
[2025-02-02 11:05] LABS: Thyroid Stimulating Hormone 4.200 uIU/mL (0.465-4.680)
== END 2025-02-02 09:25 | disposition home or self-care (01) ==
PROVIDERS: PCP Internal Medicine; Visit Provider Internal Medicine
DX: Z00.00 Encounter for general adult medical examination without abnormal findings (principal); I10 Essential (primary) hypertension; R53.82 Chronic fatigue, unspecified; R73.01 Impaired fasting glucose
CPT/HCPCS: 36415; 80053; 80061; 81001; 82550; 83036; 83880; 84439; 84443; 85025